=== PATIENT | male | born 1970 | race Caucasian/White ===

== ENCOUNTER → 2022-07-06 | Outpatient (CLI) | payer OTHER ==
--- NOTE | 2022-07-06 16:06 | XR ---
EXAMINATION TYPE: XR thoracic spine complete DATE OF EXAM: 07/06/2022 COMPARISON: None HISTORY: Thoracic pain TECHNIQUE: 3 views thoracic spine FINDINGS: There are 12 thoracic type vertebral bodies. Pedicles are intact. There is scoliosis presen t centered at T6-7. Disc heights appear preserved. There may be a superior endplate compression defor mity in the region of T12 and T9. This is age indeterminate. IMPRESSION: 1. Scoliosis. 2. Superior endplate changes in the region of T9 and T12 of indeterminate age. Consider CT for additi onal evaluation
== END | disposition home or self-care (01) ==
LOC: RADXRYALE 15:20
PROVIDERS: ATTEND Physician Assistant
DX: M41.84 Other forms of scoliosis, thoracic region (principal)
CPT/HCPCS: 72072

== ENCOUNTER 2022-11-04 14:06 | Emergency (ER) | payer OTHER ==
[2022-11-04 14:13] VITALS: RESP 18
[2022-11-04] MEDS ORDERED: KETOROLAC 15 MG/ML 1 ML VIAL IM STA (14:32)
--- NOTE | 2022-11-04 14:59 | XR ---
EXAMINATION TYPE: XR elbow complete RT DATE OF EXAM: 11/04/2022 CLINICAL HISTORY: Injury with pain and swelling TECHNIQUE: Frontal, lateral and oblique images of the right elbow are obtained. COMPARISON: None FINDINGS: There is no acute fracture/dislocation evident in the right elbow. No abnormal fat pad si gns are seen. Moderate spurring is present. The overlying soft tissue appears unremarkable. IMPRESSION: There is no acute fracture or dislocation in the right elbow.
--- NOTE | 2022-11-04 15:51 | ED ---
Upper Extremity HPI - General Chief Complaint: Extremity Injury, Upper Stated Complaint: [facility]-R arm injury Time Seen by Provider: 11/04/22 14:10 Source: patient Mode of arrival: ambulatory Limitations: no limitations - History of Present Illness Initial Comments: Patient is a 52-year-old male presents to the emergency department for right elbow pain.Patient was using a shovel at work yesterday when he fell a pop in his right elbow. Patient has pain in his elbow which is worse with extension. He has not taken any pain medication yet. No numbness or tingling. - Related Data Previous Rx's Medication Instructions Recorded Ibuprofen [Motrin] 800 mg PO Q8HR PRN #30 tab 11/04/22 Allergies Allergy/AdvReac Type Severity Reaction Status Date / Time No Known Allergies Allergy Verified 11/04/22 14:13 Review of Systems ROS Statement: Those systems with pertinent positive or pertinent negative responses have been documented in the HPI. ROS Other: All systems not noted in ROS Statement are negative. Past Medical History Past Medical History: No Reported History History of Any Multi-Drug Resistant Organisms: None Reported Past Surgical History: No Surgical Hx Reported Past Psychological History: No Psychological Hx Reported Smoking Status: Never smoker Past Alcohol Use History: Occasional Past Drug Use History: None Reported General Exam Limitations: no limitations General appearance: alert, in no apparent distress Head exam: Present: atraumatic, normocephalic, normal inspection Eye exam: Present: normal appearance, PERRL, EOMI. Absent: scleral icterus, conjunctival injection, periorbital swelling Cardiovascular Exam: Present: regular rate, normal rhythm, normal heart sounds. Absent: systolic murmur, diastolic murmur, rubs, gallop, clicks GI/Abdominal exam: Present: soft, normal bowel sounds. Absent: distended, tenderness, guarding, rebound, rigid Right Elbow exam: Present: normal inspection, full ROM, tenderness. Absent: swelling, laceration, ecchymosis, deformity, crepitus, erythema, effusion, pain w/ pronation/supination, tenderness over radial head Forearm Wrist exam: Present: normal inspection, full ROM. Absent: tenderness, tenderness over anatomical snuff box Neuro motor exam: Present: wrist extension intact, thumb opposition intact, thumb IP flexion intact, thumb adduction intact, fingers 2-5 abduction intact Vascular: Present: normal capillary refill Neurological exam: Present: alert, oriented X3, CN II-XII intact Psychiatric exam: Present: normal affect, normal mood Skin exam: Present: warm, dry, intact, normal color. Absent: rash Course Vital Signs 11/04/22 11/04/22 11/04/22 14:08 14:51 16:00 Temperature 98.0 F 98.3 F Pulse Rate 75 70 Respiratory 18 18 Rate Blood Pressure 133/93 129/98 O2 Sat by Pulse 98 98 Oximetry Medical Decision Making - Medical Decision Making Was pt. sent in by a medical professional or institution (, LAMINE, TRANSPORT MANAGER, urgent care, hospital, or [place] [facility] facility...) When possible be specific @ -No Did you speak to anyone other than the patient for history (EMS, parent, family, police, friend...)? What history was obtained from this source @ -No Did you review nursing and triage notes (agree or disagree)? Why? @ -I reviewed and agree with nursing and triage notes Were old charts reviewed (outside hosp., previous admission, EMS record, old EKG, old radiological studies, urgent care reports/EKG's, [place] [facility] facility records)? Report findings @ -No old charts were reviewed Differential Diagnosis (chest pain, altered mental status, abdominal pain women, abdominal pain men, vaginal bleeding, weakness, fever, dyspnea, syncope, headache, dizziness, GI bleed, back pain, seizure, CVA, palpatations, mental health)? @ -Elbow fracture, elbow dislocation, elbow sprain, tendinitis. This list is not meant to be all-inclusive EKG interpreted by me (3pts min.). @ -As above X-rays interpreted by me (1pt min.). @ -Yes, right elbow x-ray negative for acute process. CT interpreted by me (1pt min.). @ -None done U/S interpreted by me (1pt. min.). @ -None done What testing was considered but not performed or refused? (CT, X-rays, U/S, labs)? Why? @ -None What meds were considered but not given or refused? Why? @ -None Did you discuss the management of the patient with other professionals (professionals i.e. , LAMINE, TRANSPORT MANAGER, lab, RT, psych nurse, mental health social worker, heating repair technician, teacher, grants officer, vocational case manager)? Give summary @ -No Was smoking cessation discussed for >3mins.? @ -No Was critical care preformed (if so, how long)? @ -No Were there social determinants of health that impacted care today? How? (Homelessness, low income, unemployed, alcoholism, drug addiction, transportation, low edu. Level, literacy, decrease access to med. care, nursing home, rehab)? @ -No Was there de-escalation of care discussed even if they declined (Discuss DNR or withdrawal of care, Hospice)? DNR status @ -No What co-morbidities impacted this encounter? (DM, HTN, Smoking, COPD, CAD, Cancer, CVA, ARF, Chemo, Hep., AIDS, mental health diagnosis, sleep apnea, morbid obesity)? @ -None Was patient admitted / discharged? Hospital course, mention meds given and route, prescriptions, significant lab abnormalities, going to OR and other pertinent info. @ -Discharged. I suspect mild right elbow sprain. X-rays negative for fracture we discussed symptomatic management in detail patient will be discharged home with Motrin Undiagnosed new problem with uncertain prognosis? @ -No Drug Therapy requiring intensive monitoring for toxicity (Heparin, Nitro, Insulin, Cardizem)? @ -No Were any procedures done? @ -No Diagnosis/symptom? @ -Right elbow sprain Acute, or Chronic, or Acute on Chronic? @ -Acute Uncomplicated (without systemic symptoms) or Complicated (systemic symptoms)? @ -Uncomplicated Side effects of treatment? @ -No Exacerbation, Progression, or Severe Exacerbation? @ -No Poses a threat to life or bodily function? How? (Chest pain, USA, MS, pneumonia, PE, COPD, DKA, ARF, appy, cholecystitis, CVA, Diverticulitis, Homicidal, Suicidal, threat to staff... and all critical care pts) @ -No Dr. Quintana my attending Disposition Clinical Impression: Sprain of right elbow Disposition: HOME SELF-CARE Condition: Good Instructions (If sedation given, give patient instructions): Elbow Sprain (ED) Additional Instructions: Rest and elevate the joint as much as possible. Ice the injury for the next 24- 48 hours. If symptoms continue after, apply warm compress. Take Tylenol or Motrin as needed for pain. Follow-up with equipment sales specialist in 1 to 2 days. Return to the emergency department if you experience new, concerning, or worsening symptoms. Prescriptions: Ibuprofen [Motrin] 800 mg PO Q8HR PRN #30 tab PRN Reason: Pain Is patient prescribed a controlled substance at d/c from ED?: No Referrals: Hugh Horowitz DO [Primary Care Provider] - 1-2 days Faby Mckay DO [Doctor of Osteopathic Medicine] - 1-2 days
[2022-11-04 16:09] VITALS: BP 129/98; PULSE 70; TEMP 98.3
== END 2022-11-04 16:17 | disposition home or self-care (01) ==
LOC: EC 14:06
DX: S53.401A Unspecified sprain of right elbow, initial encounter (principal); W18.30XA Fall on same level, unspecified, initial encounter; Y99.0 Civilian activity done for income or pay
CPT/HCPCS: 73080; 99283; 96372; J1885